=== PATIENT | female | born 1935 | race Caucasian/White ===

== ENCOUNTER 2018-06-06 00:54 | Inpatient (IN) | payer MEDICARE, MEDICAID ==
[~2018-06-06] VITALS: Ht 165.1 cm; Wt 81.6 kg
[2018-06-06 02:13] LABS: HEMATOCRIT. 37.8 % (36.0-48.0); HEMOGLOBIN. 12.4 g/dL (12.0-16.0); MEAN CORPUSCULAR HEMOGLOBIN 27.6 pg (28.0-32.0); MEAN CORPUSCULAR VOLUME 84.3 fL (81.0-99.0); MEAN PLATELET VOLUME 9.9 fl (7.4-10.4); PLATELET 160 x1000/uL (130-400); RED BLOOD CELL COUNT 4.48 mill/uL (4.2-5.4); RED CELL DISTRIBUTION WIDTH 15.1 % (11.6-14.6)
[2018-06-06 02:18] LABS: INR 1.2; PROTHROMBIN TIME 12.3 sec (9.1-11.1)
[2018-06-06 02:19] LABS: CLARITY URINE CLOUDY (CLEAR); COLOR URINE YELLOW (YELLOW); KETONES URINE NEGATIVE (NEGATIVE); LEUKOCYTE ESTERASE URINE 3+ (NEGATIVE); NITRITE URINE POSITIVE (NEGATIVE); OCCULT BLOOD URINE 2+ (NEGATIVE); PROTEIN URINE 2+ (NEGATIVE); SPECIFIC GRAVITY URINE 1.014 (1.005-1.030); UROBILINOGEN URINE 0.2 E.U./dL (0.2-1.0)
[2018-06-06 02:23] LABS: CHLORIDE 109 mEq/L (98-107)
[2018-06-06] MEDS ORDERED: SODIUM CHLORIDE 0.9% 1000ML BAG (SEPSIS BOLUS) IV ONE (03:00)
[2018-06-06] MEDS ORDERED: PIPERACILLIN/TAZ 3.375G PREMIX 50 ML IV ONE (03:00)
[2018-06-06 04:55] LABS: PLATELET ESTIMATE NORMAL
[2018-06-06] MEDS ORDERED: ACETAMINOPHEN 650MG/20.3ML UDC GT PRN (11:30)
[2018-06-06] MEDS ORDERED: NA PHOS,M-B/NA PHOS,DI-BA ENEMA 118ML PR PRN (11:30)
[2018-06-06] MEDS ORDERED: LEVOFLOXACIN 500MG PREMIX 100 ML IV SCH (11:30)
[2018-06-06] MEDS ORDERED: MAGNESIUM/ALUMINUM HYDROXIDE/SIMETHICONE 30ML UDC PO PRN (11:30)
[2018-06-06] MEDS ORDERED: GUAIFENESIN 200MG/10ML SUGAR FREE UDC PO PRN (11:30)
[2018-06-06] MEDS ORDERED: ACETAMINOPHEN 650MG SUPP PR PRN (11:30)
[2018-06-06] MEDS ORDERED: DOCUSATE SODIUM 100MG CAPSULE PO PRN (11:30)
[2018-06-06] MEDS ORDERED: IPRATROPIUM/ALBUTEROL 0.5-3(2.5)MG/3ML NEB INH PRN (11:30)
[2018-06-06] MEDS ORDERED: ONDANSETRON HCL 4MG/2ML INJ IV PRN (11:30)
[2018-06-06 12:00] VITALS: BP 148/73
[2018-06-06] MEDS ORDERED: POTASSIUM CHLORIDE 20MEQ TABLET SR PO PRN (12:00)
[2018-06-06] MEDS ORDERED: DEXTROSE 50% WATER 50ML SYRINGE IV PRN (12:00)
[2018-06-06] MEDS: BLOOD SUGAR DIAGNOSTIC STRIP TEST SCH ×3 (12:25→20:23)
[2018-06-06] MEDS: LEVOFLOXACIN 750MG PREMIX 150 ML IV SCH (13:26)
[2018-06-06] MEDS: SODIUM CHLORIDE 0.9% INJ 3ML FLUSH IVF SCH ×2 (13:26→21:04)
[2018-06-06] MEDS: SODIUM CHLORIDE 0.9% 1,000 ML IV SCH (13:27)
[2018-06-06] MEDS ORDERED: SITA1TAB6 MT (14:00)
[2018-06-06] MEDS ORDERED: RALO60TA13 MT (14:00)
[2018-06-06] MEDS ORDERED: DONE10TA11 MT (14:00)
[2018-06-06] MEDS ORDERED: MEMA5TAB15 MT (14:00)
[2018-06-06] MEDS ORDERED: ATEN50TA MT (14:00)
[2018-06-06] MEDS ORDERED: GLIP10TA10 MT (14:00)
[2018-06-06] MEDS: INSULIN LISPRO 100 UNITS/ML SUBCUT SCH ×3 (14:08→21:04)
[2018-06-06] MEDS ORDERED: RALOXIFENE HCL 60 MG PO SCH (14:15)
[2018-06-06 15:26] LABS: CHLORIDE 108 mEq/L (98-107)
[2018-06-06 15:32] LABS: HDL CHOLESTEROL 32 mg/dL (40-59); LDL CHOLESTEROL 65 mg/dL (5-100)
[2018-06-06 15:37] LABS: HEMATOCRIT. 34.8 % (36.0-48.0); HEMOGLOBIN. 11.3 g/dL (12.0-16.0); MEAN CORPUSCULAR HEMOGLOBIN 27.6 pg (28.0-32.0); MEAN PLATELET VOLUME 10.8 fl (7.4-10.4); PLATELET 141 x1000/uL (130-400); RED BLOOD CELL COUNT 4.09 mill/uL (4.2-5.4); RED CELL DISTRIBUTION WIDTH 15.7 % (11.6-14.6)
[2018-06-06 15:45] LABS: CLARITY URINE CLOUDY (CLEAR); COLOR URINE YELLOW (YELLOW); KETONES URINE NEGATIVE (NEGATIVE); LEUKOCYTE ESTERASE URINE 3+ (NEGATIVE); NITRITE URINE POSITIVE (NEGATIVE); OCCULT BLOOD URINE 1+ (NEGATIVE); PH URINE 5.5 (4.5-8.0); PROTEIN URINE TRACE (NEGATIVE); SPECIFIC GRAVITY URINE 1.015 (1.005-1.030); UROBILINOGEN URINE 0.2 E.U./dL (0.2-1.0)
[2018-06-06 16:00] VITALS: BP 118/58
[2018-06-06 16:16] LABS: *AMPHETAMINES SCREEN URINE NEGATIVE (NEGATIVE); *BARBITURATES SCREEN URINE NEGATIVE (NEGATIVE); *BENZODIAZEPINES SCREEN URINE NEGATIVE (NEGATIVE)
[2018-06-06 16:19] LABS: *COCAINE SCREEN URINE NEGATIVE (NEGATIVE); CANNABINOID URINE SCREEN NEGATIVE (NEGATIVE); METHADONE URINE SCREEN NEGATIVE (NEGATIVE); OPIATES URINE SCREEN NEGATIVE (NEGATIVE); PHENCYCLIDINE URINE SCREEN NEGATIVE (NEGATIVE)
[2018-06-06] MEDS: MEMANTINE HCL 5MG TABLET PO SCH (16:44)
[2018-06-06] MEDS: LINAGLIPTIN 5MG TABLET PO SCH (16:44)
[2018-06-06] MEDS: DONEPEZIL HCL 10MG TABLET PO SCH (16:44)
[2018-06-06] MEDS: ATENOLOL 50 MG TABLET PO SCH (16:44)
[2018-06-06 16:45] LABS: PLATELET ESTIMATE NORMAL
[2018-06-06] MEDS ORDERED: SITAGLIPTIN PHOS MT SCH (17:00)
[2018-06-06] MEDS ORDERED: [UNRECOGNIZED DRUG - OTHER] MT SCH (17:00)
[2018-06-06] MEDS ORDERED: METFORMIN HCL MT SCH (17:00)
[2018-06-06 20:00] VITALS: BP 145/66
[2018-06-07 00:35] VITALS: BP 138/70
[2018-06-07] MEDS: PIPERACILLIN/TAZOBACTAM 2.25 G in DEXTROSE 5% WATER 50 ML IV SCH ×2 (01:23→06:31)
[2018-06-07 04:00] VITALS: BP 140/80
[2018-06-07] MEDS: BLOOD SUGAR DIAGNOSTIC STRIP TEST SCH ×4 (05:58→21:26)
[2018-06-07] MEDS: INSULIN LISPRO 100 UNITS/ML SUBCUT SCH ×4 (06:11→21:28)
[2018-06-07] MEDS: SODIUM CHLORIDE 0.9% INJ 3ML FLUSH IVF SCH ×3 (06:31→21:29)
[2018-06-07 07:59] LABS: BASOPHILS % 0.2 % (0.0-2.0); HEMOGLOBIN. 11.3 g/dL (12.0-16.0); MEAN CORPUSCULAR HEMOGLOBIN 27.8 pg (28.0-32.0); MEAN CORPUSCULAR VOLUME 83.8 fL (81.0-99.0); MEAN PLATELET VOLUME 10.2 fl (7.4-10.4); MONOCYTES % 5.2 % (2.0-8.0); NEUTROPHILS % 86.6 % (40.0-76.0); PLATELET 125 x1000/uL (130-400); RED BLOOD CELL COUNT 4.06 mill/uL (4.2-5.4); RED CELL DISTRIBUTION WIDTH 15.3 % (11.6-14.6)
[2018-06-07 08:00] VITALS: BP_SYST 161; BP_SYST 188; BP_DIAS 66; BP_DIAS 72
[2018-06-07 08:16] LABS: CHLORIDE 106 mEq/L (98-107)
[2018-06-07] MEDS: LINAGLIPTIN 5MG TABLET PO SCH (08:33)
[2018-06-07] MEDS: DONEPEZIL HCL 10MG TABLET PO SCH (08:33)
[2018-06-07] MEDS: MEMANTINE HCL 5MG TABLET PO SCH ×2 (08:33→17:27)
[2018-06-07] MEDS: ATENOLOL 50 MG TABLET PO SCH (08:34)
[2018-06-07 08:37] LABS: HDL CHOLESTEROL 24 mg/dL (40-59); LDL CHOLESTEROL 67 mg/dL (5-100)
[2018-06-07 09:55] LABS: VITAMIN B12 SERUM 355 pg/mL (211-911)
[2018-06-07] MEDS: CLONIDINE 0.1MG TABLET PO PRN (13:00)
[2018-06-07] MEDS: ACETAMINOPHEN 325MG TABLET PO PRN (13:00)
[2018-06-07 14:10] VITALS: BP 111/53
[2018-06-07] MEDS: SODIUM CHLORIDE 0.9% 1,000 ML IV SCH (14:22)
[2018-06-07] MEDS: PIPERACILLIN/TAZ 3.375G PREMIX 50 ML IV SCH ×2 (14:22→21:26)
[2018-06-07 16:00] VITALS: BP 107/54
[2018-06-07 20:00] VITALS: BP 117/63
[2018-06-08] VITALS: BP 172/80
[2018-06-08 04:00] VITALS: BP 133/55
[2018-06-08] MEDS: BLOOD SUGAR DIAGNOSTIC STRIP TEST SCH ×4 (06:21→21:34)
[2018-06-08] MEDS: PIPERACILLIN/TAZ 3.375G PREMIX 50 ML IV SCH ×2 (06:28→12:58)
[2018-06-08] MEDS: INSULIN LISPRO 100 UNITS/ML SUBCUT SCH ×4 (06:29→22:49)
[2018-06-08] MEDS: SODIUM CHLORIDE 0.9% 1,000 ML IV SCH ×2 (08:41→13:17)
[2018-06-08] MEDS: MEMANTINE HCL 5MG TABLET PO SCH ×2 (08:41→17:27)
[2018-06-08] MEDS: DONEPEZIL HCL 10MG TABLET PO SCH (08:41)
[2018-06-08] MEDS: ATENOLOL 50 MG TABLET PO SCH (08:41)
[2018-06-08] MEDS: LINAGLIPTIN 5MG TABLET PO SCH (08:42)
[2018-06-08 12:00] VITALS: BP 144/59
[2018-06-08] MEDS: SODIUM CHLORIDE 0.9% INJ 3ML FLUSH IVF SCH ×2 (12:57→21:28)
[2018-06-08] MEDS: LEVOFLOXACIN 750MG PREMIX 150 ML IV SCH (12:58)
[2018-06-08 16:00] VITALS: BP 107/53
[2018-06-08] MEDS: MEROPENEM 500 MG in SODIUM CHLORIDE 0.9% 50 ML IV SCH ×2 (17:27→23:53)
[2018-06-08] MEDS: RALOXIFENE HCL 60 MG PO SCH (17:28)
[2018-06-08 20:00] VITALS: BP 147/68
[2018-06-08 23:15] LABS: CHLORIDE 105 mEq/L (98-107)
[2018-06-08 23:19] LABS: HEMOGLOBIN. 10.9 g/dL (12.0-16.0); MEAN CORPUSCULAR VOLUME 84.8 fL (81.0-99.0); MEAN PLATELET VOLUME 10.5 fl (7.4-10.4); PLATELET 112 x1000/uL (130-400); RED BLOOD CELL COUNT 3.89 mill/uL (4.2-5.4); RED CELL DISTRIBUTION WIDTH 15.4 % (11.6-14.6)
[2018-06-09] VITALS (7 sets, daily range): BP systolic 145–168; BP diastolic 52–75
[2018-06-09 01:05] LABS: PLATELET ESTIMATE DECREASED
[2018-06-09] MEDS: SODIUM CHLORIDE 0.9% INJ 3ML FLUSH IVF SCH ×3 (06:35→22:06)
[2018-06-09] MEDS: BLOOD SUGAR DIAGNOSTIC STRIP TEST SCH ×4 (06:35→21:00)
[2018-06-09] MEDS: SODIUM CHLORIDE 0.9% 1,000 ML IV SCH (06:36)
[2018-06-09] MEDS: RALOXIFENE HCL 60 MG PO SCH (08:37)
[2018-06-09] MEDS: DONEPEZIL HCL 10MG TABLET PO SCH (08:37)
[2018-06-09] MEDS: MEROPENEM 500 MG in SODIUM CHLORIDE 0.9% 50 ML IV SCH ×2 (08:37→16:40)
[2018-06-09] MEDS: ACETAMINOPHEN 325MG TABLET PO PRN (08:37)
[2018-06-09] MEDS: LINAGLIPTIN 5MG TABLET PO SCH (08:38)
[2018-06-09] MEDS: MEMANTINE HCL 5MG TABLET PO SCH ×2 (08:38→16:40)
[2018-06-09] MEDS: ATENOLOL 50 MG TABLET PO SCH (08:38)
[2018-06-09] MEDS: INSULIN LISPRO 100 UNITS/ML SUBCUT SCH ×4 (08:39→22:08)
[2018-06-09] MEDS: CLONIDINE 0.1MG TABLET PO PRN (16:47)
[2018-06-10] VITALS: BP 155/66
[2018-06-10] MEDS: MEROPENEM 500 MG in SODIUM CHLORIDE 0.9% 50 ML IV SCH ×2 (00:59→08:23)
[2018-06-10 04:00] VITALS: BP 162/79
[2018-06-10] MEDS: SODIUM CHLORIDE 0.9% INJ 3ML FLUSH IVF SCH ×2 (06:27→14:37)
[2018-06-10] MEDS: INSULIN LISPRO 100 UNITS/ML SUBCUT SCH ×2 (06:28→12:22)
[2018-06-10] MEDS: BLOOD SUGAR DIAGNOSTIC STRIP TEST SCH ×2 (06:28→12:14)
[2018-06-10 08:00] VITALS: BP 130/76
[2018-06-10] MEDS: DONEPEZIL HCL 10MG TABLET PO SCH (08:23)
[2018-06-10] MEDS: RALOXIFENE HCL 60 MG PO SCH (08:23)
[2018-06-10] MEDS: MEMANTINE HCL 5MG TABLET PO SCH (08:23)
[2018-06-10] MEDS: ATENOLOL 50 MG TABLET PO SCH (08:23)
[2018-06-10] MEDS: LINAGLIPTIN 5MG TABLET PO SCH (08:23)
[2018-06-10] MEDS ORDERED: MERO500V IV (09:09)
[2018-06-10 09:30] VITALS: BP 130/76
[2018-06-10 12:12] LABS: BASOPHILS % 0.5 % (0.0-2.0); EOSINOPHILS % 2.4 % (0.0-5.0); HEMATOCRIT. 33.4 % (36.0-48.0); HEMOGLOBIN. 11.1 g/dL (12.0-16.0); LYMPHOCYTES % 25.2 % (20.0-50.0); MEAN CORPUSCULAR HEMOGLOBIN 27.9 pg (28.0-32.0); MEAN CORPUSCULAR VOLUME 84.3 fL (81.0-99.0); MONOCYTES % 12.6 % (2.0-8.0); NEUTROPHILS % 59.3 % (40.0-76.0); PLATELET 129 x1000/uL (130-400); RED BLOOD CELL COUNT 3.96 mill/uL (4.2-5.4); RED CELL DISTRIBUTION WIDTH 15.2 % (11.6-14.6)
[2018-06-10 12:25] LABS: CHLORIDE 107 mEq/L (98-107)
[2018-06-10 12:27] VITALS: BP 178/62
[2018-06-10] MEDS: CLONIDINE 0.1MG TABLET PO PRN (12:41)
[2018-06-10 13:29] VITALS: BP 122/61
[2018-06-10] MEDS ORDERED: INFLUENZA VIRUS VACCINE(AFLURIA) 0.5ML SYR IM ONE (14:30)
[2018-06-15] MEDS ORDERED: APIX5TAB PO (12:09)
[2018-06-15] MEDS ORDERED: APIX5TAB MT (12:09)
== END 2018-06-10 15:13 | disposition home health service (06) | DRG 871 ==
LOC: ER 01:43 → 8WST 02:55 → EDBEDREQ 03:01 → EDBEDREQTM 03:01 → ENRESERV 10:59
PROVIDERS: ADMIT Family Medicine; ATTEND Family Medicine
PROC: 4A00X4Z Measurement of Central Nervous Electrical Activity, External Approach (ICD-10-PCS; principal; 2018-06-08)
PROC: 02HV33Z Insertion of Infusion Device into Superior Vena Cava, Percutaneous Approach (ICD-10-PCS; 2018-06-09)
PROC: B5181ZA Fluoroscopy of Superior Vena Cava using Low Osmolar Contrast, Guidance (ICD-10-PCS; 2018-06-09)
PROC: B548ZZA Ultrasonography of Superior Vena Cava, Guidance (ICD-10-PCS; 2018-06-09)
DX: A41.51 Sepsis due to Escherichia coli [E. coli] (principal); G93.41 Metabolic encephalopathy; E44.1 Mild protein-calorie malnutrition; N39.0 Urinary tract infection, site not specified; E11.9 Type 2 diabetes mellitus without complications; F02.80 Dementia in other diseases classified elsewhere, unspecified severity, without behavioral disturbance, psychotic disturbance, mood disturbance, and anxiety; G30.9 Alzheimer's disease, unspecified; D63.8 Anemia in other chronic diseases classified elsewhere; I11.9 Hypertensive heart disease without heart failure; M13.0 Polyarthritis, unspecified; R32 Unspecified urinary incontinence; R62.7 Adult failure to thrive; Z16.12 Extended spectrum beta lactamase (ESBL) resistance; Z74.01 Bed confinement status; Z68.30 Body mass index [BMI] 30.0-30.9, adult; Z86.73 Personal history of transient ischemic attack (TIA), and cerebral infarction without residual deficits; Z87.442 Personal history of urinary calculi; Z79.84 Long term (current) use of oral hypoglycemic drugs; Z79.899 Other long term (current) drug therapy
CPT/HCPCS: 36415; 36569; 71045; 74176; 76770; 76937; 77001; 80061; 80305; 82607; 82962; 83036; 83605; 83880; 84443; 84484; 87077; 87106; 87186; 90686; 92610; 93005; 96365; 97162; 99291; C1725; C1893; J1815; J1956; J2185; J2543; J7030; J7060